=== PATIENT | female | born 1970 | race Caucasian/White ===

== ENCOUNTER 2016-12-26 22:05 | Emergency (ER) | payer MEDICAID ==
[~2016-12-26] VITALS: Ht 162.6 cm; Wt 79.0 kg
[2016-12-27 03:33] VITALS: BP 124/83
[2016-12-27] MEDS ORDERED: BACITRACIN TOP OINT 1 UD PKG TOP ONE (03:45)
[2016-12-27] MEDS ORDERED: TETANUS-DIPTH-ACEL PERTUSSIS 0.5ML SYRG IM ONE (03:45)
[2016-12-27] MEDS ORDERED: ACETAMINOPHEN 325 MG TAB PO ONE (03:45)
[2016-12-27] MEDS ORDERED: ACETAMINOPHEN 500 MG TAB PO ONE (04:00)
== END 2016-12-27 04:56 | disposition home or self-care (01) ==
LOC: ER 22:09
DX: S61.512A Laceration without foreign body of left wrist, initial encounter (principal); S00.83XA Contusion of other part of head, initial encounter; I10 Essential (primary) hypertension; Z90.49 Acquired absence of other specified parts of digestive tract; F17.210 Nicotine dependence, cigarettes, uncomplicated; W26.0XXA Contact with knife, initial encounter; Y93.89 Activity, other specified; Y99.8 Other external cause status; Y92.89 Other specified places as the place of occurrence of the external cause
CPT/HCPCS: 12032; 90471; 90715